=== PATIENT | male | born 1955 | race Caucasian/White ===

== ENCOUNTER 2020-05-25 21:05 | Emergency (ER) | payer MEDICARE, SELFPAY ==
[2020-05-25 21:28] VITALS: BP 159/80; PULSE 68; RESP 18; TEMP 36.7; O2SAT 98; BMI 29.0
[2020-05-25 22:16] VITALS: BP 159/74; PULSE 63; RESP 18; O2SAT 99
--- NOTE | 2020-05-25 22:23 | ECG_ITS ---
Test Reason : HTN Blood Pressure : / mmHG Vent. Rate : 059 BPM Atrial Rate : 059 BPM P-R Int : 178 ms QRS Dur : 154 ms QT Int : 436 ms P-R-T Axes : 047 -07 -03 degrees QTc Int : 431 ms Sinus bradycardia Right bundle branch block Minimal voltage criteria for LVH, may be normal variant Inferior infarct , age undetermined Abnormal ECG No significant changes seen Referred By: Eloisa Muse Electronically Signed By:MIL MCCORMICK MD
--- NOTE | 2020-05-25 22:24 | ED_ITS ---
HPI - General Adult General Chief complaint: General Medical Stated complaint: hi bp Time Seen by Provider: 05/25/20 22:18 Source: patient Mode of arrival: ambulatory Limitations: no limitations History of Present Illness HPI narrative: patient comes to emergency room complaining of high blood pressure. Patient states he takes 20 mg of lisinopril a day, over the last week he has noticed that his blood pressure gets too low 160-170 systolic at night, then during the day is about 140. Prior to arrival, patient took a 2nd tablet of lisinopril. On arrival patient's blood pressure 159/74, now is 140/78, patient states he does not have any headache, no visual changes, no chest pain and shortness of breath. MD complaint: hypertension Related Data Previous Rx's Medication Instructions Recorded lisinopril 40 mg PO DAILY #30 tab 05/25/20 lisinopril 40 mg PO DAILY #30 tab 05/25/20 Allergies Allergy/AdvReac Type Severity Reaction Status Date / Time No Known Allergies Allergy Unverified 04/01/20 16:53 [No Known Allergies*] Review of Systems Review of Systems: Constitutional : No Weight loss, No Fever, No Chills, No Night Sweats, No Fatigue, No Malaise ENT/Mouth : No Hearing loss, No Ear Pain, No Nasal Congestion, No Sinus Pain, No Hoarseness, No sore throat, No Rhinorrhea, No Swallowing Difficulty Eyes: No Eye Pain, No Swelling, No Redness, No Foreign Body, No Discharge, No Vision Changes Cardiovascular : No Chest Pain, No SOB, No Dyspnea on Exertion, No Orthopnea, No Edema, No Palpitations Respiratory : No Cough, No Sputum, No Wheezing, No Smoke Exposure, No Dyspnea Gastrointestinal : No Nausea, No Vomiting, No Diarrhea, No Constipation, No abdominal Pain, No Hematochezia, No Melena Genitourinary : no irregular bleeding, No Dysuria, No Urinary Frequency, No Hematuria, No Urinary Incontinence, No Urgency, No Flank Pain, No Urinary Flow Changes, No Hesitancy Musculoskeletal : No joint pain, No Myalgias, No Joint Swelling Skin : No Skin Lesions, No rash Neuro : No Weakness, No Numbness, No Paresthesias, No Loss of Consciousness, complaining of headache when his blood pressure is high, at this time no headache or dizziness Psych : No Anxiety/Panic, No Depression, No SI/HI/AH/VH, No Social Issues, Heme/Lymph: No Bruising, No Bleeding,No Lymphadenopathy Endocrine : No Polyuria, No Polydipsia, No Temperature Intolerance [facility] Past Medical History Medical History HTN (hypertension) Hypercholesteremia Surgical History (Updated 05/25/20 @ 21:32 by Asia Tatum) History of prostate surgery Social History Social History Advance Directives: No Advance Directives Information Provided: No Physical Exam Vital Signs: Vital Signs: Last Vital Signs Temp 98.0 F 05/25/20 21:28 Pulse 63 05/25/20 22:16 Resp 18 05/25/20 22:16 BP 159/74 H 05/25/20 22:16 Pulse Ox 99 05/25/20 22:16 Body Mass Index 29.0 Appearance: Alert. Oriented X3. No acute distress. Eyes: Pupils equal, round and reactive to light. ENT: Pharynx normal. Neck: Normal inspection. Neck supple. No lymph nodes noted. No crepitus CVS: Normal heart rate and rhythm. Pulses normal. Normal S1 and S2 Respiratory: No respiratory distress. Breath sounds normal. No Wheezing. No rales Abdomen: Soft and nontender. No rigidity. No distention. good BS x4 Skin: Skin warm and dry. Normal skin color. Normal skin turgor. Extremities: No lower extremity edema. No lower extremity edema. No Lacerations. No Rash Neuro: Oriented X 3. No motor deficit. No sensory deficit. Moving all extermities. No slurred speech. Course Course Course Narrative: I discussed with the patient that we will increase his lisinopril dose to 40 mg a day, at this time patient is asymptomatic with a blood pressure of 140/78 Medical Decision Making ECG Data Attestation: I personally reviewed and interpreted this ECG as follows: ( sinus rhythm, heart rate 59, right bundle-branch block, nonspecific T-wave inversions in lead 3, nonspecific T-wave depressions V4 through V6, no new changes since November 2017) Discharge Plan Discharge Clinical Impression: Hypertension Qualifiers: Hypertension type: unspecified Qualified Code(s): I10 - Essential (primary) hypertension Patient Disposition: Home, Self-Care Instructions: Hypertension (ED) Additional Instructions: please follow-up with your primary care physician, please let your PCP know that your dose of lisinopril has been increased to 40 mg. Prescriptions: New lisinopril 40 mg tablet 40 mg PO DAILY Qty: 30 RF: 0 lisinopril 40 mg tablet 40 mg PO DAILY Qty: 30 RF: 0
[2020-05-25 22:49] VITALS: BP 136/76; PULSE 60; RESP 20; O2SAT 98
== END 2020-05-25 23:04 | disposition home or self-care (01) ==
PROVIDERS: Emergency Provider Emergency Medicine
DX: I10 Essential (primary) hypertension (principal); Z79.899 Other long term (current) drug therapy
CPT/HCPCS: 93005; 99283; 99284

== ENCOUNTER 2020-12-11 08:43 | Outpatient (REF) | payer MEDICARE, SELFPAY ==
[2020-12-11 09:59] LABS: Hematocrit 47.3 % (42-52); Hemoglobin 16.1 g/dl (14.0-18.0); Mean Corpuscular Hemoglobin 31.4 pg (27.0-33.0); Mean Corpuscular Volume 92.2 fL (80-98); Mean Platelet Volume 9.2 fL (9.4-12.4); Platelet Count 307 X10*3/uL (160-400); Red Blood Count 5.13 X10*6/uL (4.60-5.80); Red Cell Distribution Width 12.8 % (11.0-16.0); White Blood Count 7.5 X10*3/uL (4.8-10.8)
[2020-12-11 10:36] LABS: Creatinine Urine 84.03 mg/dL; Microalbumin Urine < 5.0 mg/L
[2020-12-11 10:40] LABS: Alanine Aminotransferase 65 U/L (0-40); Albumin Level 4.5 g/dL (3.5-5.0); Alkaline Phosphatase 55 U/L (39-117); Anion Gap 13 (12-20); Aspartate Amino Transferase 61 U/L (5-37); Bilirubin Total 0.9 mg/dL (0.0-1.0); Blood Urea Nitrogen 17 mg/dL (9-16); Calcium 9.5 mg/dL (8.4-10.2); Carbon Dioxide 28 mmol/L (22-29); Chloride 102 mmol/L (96-108); Estimated Glomerular Filt Rate > 60; Glucose Random 90 mg/dL (60-115); Potassium 4.6 mmol/L (3.3-5.1); Sodium 138 mmol/L (135-145); Total Protein 7.6 g/dL (6.5-8.0)
== END 2020-12-11 08:44 | disposition home or self-care (01) ==
LOC: HO.LAB 08:43
PROVIDERS: PCP Family Medicine; Visit Provider Family Medicine
DX: I10 Essential (primary) hypertension (principal)
CPT/HCPCS: 36415; 80053; 82043; 85027

== ENCOUNTER 2023-01-24 12:11 | Outpatient (REF) | payer MEDICARE, SELFPAY ==
--- NOTE | ~2023-01-24 | US_ITS ---
EXAMINATION: US SCROTUM CLINICAL INFORMATION: Right testicular pain. COMPARISON: None available. TECHNIQUE: A sonogram of the scrotum was performed assessing hernandez-scale appearance and color Doppler flow. Spectral Doppler analysis of the arterial and venous flow were performed in the testes bilaterally. FINDINGS: RIGHT: Right testicle measures 4.6 x 2.5 x 3.2 cm, volume 19.3 mL. No focal testicular parenchymal lesions are visualized. Spectral Doppler analysis of the arterial and venous flow is normal in the right testis. Right epididymal head is normal in size. No right varicocele is seen. Trace right hydrocele. Right epididymal Doppler flow is normal. LEFT: Left testicle measures 4.7 x 2.6 x 2.9 cm, volume 18.6 mL. No focal testicular parenchymal lesions are visualized. Spectral Doppler analysis of the arterial and venous flow is normal in the left testis. Left epididymal head is normal in size. No left hydrocele or varicocele is seen. Left epididymal Doppler flow is normal. US/US scrotum IMPRESSION: Trace right hydrocele.
== END 2023-01-24 12:12 | disposition home or self-care (01) ==
LOC: HO.US 12:11
PROVIDERS: PCP Registered Nurse; Visit Provider Registered Nurse
DX: N50.811 Right testicular pain (principal)
CPT/HCPCS: 76870

== ENCOUNTER 2023-04-21 08:31 | Outpatient (REF) | payer MEDICARE, SELFPAY ==
[2023-04-21 09:33] LABS: Cholesterol 146 mg/dL (<200); HDL Cholesterol 33 mg/dL (>40); LDL Cholesterol Calculated 94 mg/dL (<100); Triglycerides 95 mg/dL (<150)
== END 2023-04-21 08:32 | disposition home or self-care (01) ==
LOC: HO.LAB 08:31
PROVIDERS: PCP Registered Nurse; Visit Provider Registered Nurse
DX: E78.2 Mixed hyperlipidemia (principal)
CPT/HCPCS: 36415; 80061

== ENCOUNTER 2023-10-22 12:47 | Outpatient (REF) | payer MEDICARE, SELFPAY ==
[2023-10-22 14:21] LABS: Prostate Specific Antigen 1.63 ng/mL (<0.05-4.0)
== END 2023-10-22 12:48 | disposition home or self-care (01) ==
LOC: HO.LAB 12:47
PROVIDERS: PCP Registered Nurse; Visit Provider Registered Nurse
DX: Z00.00 Encounter for general adult medical examination without abnormal findings (principal); Z12.5 Encounter for screening for malignant neoplasm of prostate
CPT/HCPCS: 36415; 84153

== ENCOUNTER 2024-04-09 09:07 | Outpatient (REF) | payer MEDICARE, SELFPAY ==
[2024-04-09 11:25] LABS: Anion Gap 12 (12-20); Blood Urea Nitrogen 18 mg/dL (9-16); Calcium 10.1 mg/dL (8.4-10.2); Carbon Dioxide 28 mmol/L (22-29); Chloride 103 mmol/L (96-108); Estimated Glomerular Filt Rate 48; Glucose Random 126 mg/dL (60-115); Potassium 3.4 mmol/L (3.3-5.1); Sodium 140 mmol/L (135-145); Uric Acid 9.6 mg/dL (3.4-7.0)
[2024-04-10 16:53] LABS: Lyme Abs Screen <0.90 index
== END 2024-04-09 09:08 | disposition home or self-care (01) ==
LOC: HO.HHCL 09:07
PROVIDERS: Visit Provider Emergency Medicine
DX: M79.672 Pain in left foot (principal)
CPT/HCPCS: 36415; 80048; 84550; 86617; 86618

== ENCOUNTER 2024-05-02 08:41 | Outpatient (REF) | payer MEDICARE, SELFPAY ==
[2024-05-02 12:40] LABS: Anion Gap 11 (12-20); Blood Urea Nitrogen 16 mg/dL (9-16); Carbon Dioxide 30 mmol/L (22-29); Chloride 102 mmol/L (96-108); Estimated Glomerular Filt Rate > 60; Glucose Random 102 mg/dL (60-115); Potassium 4.4 mmol/L (3.3-5.1); Sodium 139 mmol/L (135-145)
== END 2024-05-02 08:42 | disposition home or self-care (01) ==
LOC: HO.HHCL 08:41
PROVIDERS: Referring Provider Family Medicine; Visit Provider Emergency Medicine
DX: R79.89 Other specified abnormal findings of blood chemistry (principal)
CPT/HCPCS: 36415; 80048

== ENCOUNTER 2024-05-05 13:44 | Outpatient (REF) | payer MEDICARE, SELFPAY ==
[2024-05-05 17:04] LABS: Uric Acid 8.7 mg/dL (3.4-7.0)
== END 2024-05-05 13:45 | disposition home or self-care (01) ==
LOC: HO.HHCL 13:44
PROVIDERS: Visit Provider Registered Nurse
DX: M10.9 Gout, unspecified (principal)
CPT/HCPCS: 36415; 84550

== ENCOUNTER 2024-08-22 10:29 | Outpatient (REF) | END 2024-08-22 10:30 | disposition home or self-care (01) | LOC: HO.HHCX 10:29 | DX: M1A.0720 Idiopathic chronic gout, left ankle and foot, without tophus (tophi) (principal) ==

== ENCOUNTER → 2024-08-22 10:32 | Outpatient (BNV) | payer MEDICARE, SELFPAY | PROVIDERS: Visit Provider Radiology Diagnostic Radiology | DX: M79.672 Pain in left foot (principal); M21.42 Flat foot [pes planus] (acquired), left foot; M77.32 Calcaneal spur, left foot | CPT/HCPCS: 73630 ==

== ENCOUNTER 2024-08-25 08:25 | Outpatient (REF) | payer MEDICARE, SELFPAY ==
--- OUTSIDE RECORDS SUMMARY | 2024-08-25 08:42 | XMS_ITS | Encounter Summary ---
Author Organization [employer] Address [address] [place] [address] [address] [place] [address] Care Team Providers Care Real Estate Photographer Name Role Phone Isamar Bonner [facility] Primary Care Provider [phone] Reason for Visit * Reason Onset Date Comments insurance 08/20/2024 Encounter Details Date Type Department Care Team ([facility] st Contact Info) Description 08/20/[address] [facility] MEDICINE [address] [place], [place] [phone] Isamar Bonner [facility] [address] [place] [address] insurance Social History Tobacco Use Types Packs/Day Years Used Date Smoking Tobacco: Never Smokeless Tobacco: Never Alcohol Use Standard Drinks/Week Comments Never 0 (1 standard drink = 0.6 oz pur e alcohol) Depression Answer Date Recorded Patient Health Questionnaire-9 Score 0 05/05/2024 Patient Health Questionnaire-9 Score 0 05/05/2024 Last PHQ-9: Questionnaire Data Not on file 1 Housing Stability Answer Date Recorded What is your housing situation today? I have bobbi theodore 10/12/[address] you li ve. Do you have problems with any of the following? None of the above 10/12/2023 Food Insecurity Answer Date Recorded Within the past 12 months, y ou worried that your food would run out before you got money to buy more: Never True 10/12/2023 Within the past 12 months,th e food you bought just didn't last and you didn't have enough money to get more: Never True Transportation Answer Date Recorded In the past 12 months, has l ack of transportation kept you from medical appts, meetings, work or from getting things needed for daily living? No 10/12/2023 Utilities Answer Date Recorded In the past 12 months, has t he electric, gas, oil or water company threatened to shut off services in your home? No 10/12/2023 Depression Answer Date Recorded Patient Health Questionnaire-2 Score 0 05/05/2024 Sex and Gender Information Value Date Recorded Sex Assigned at Male 05/15/2022 10:15 AM EDT Legal Sex Male 10:15 AM EDT Gender Identity Male 05/15/2022 10:15 AM EDT Sexual Orientation Straight 05/15/2022 10 :15 AM EDT documented as of this encounter Miscellaneous Notes * Telephone Encounter - Virikaren Steel - 08/20/2024 2:59 PM EST Called pt to ask what insurance they have because the one on his chart was coming back inactive pt said he has [facility] pt gave me the member ID , the insurance is active but the only problem I told him is the pcp assigned to the insurance is from somewhere else he has to call the insurance and let themknow his pcp is Filer from [facility]. Pt said no problem he will call. documented in this encounter Plan of Treatment Upcoming Encounters Date Type Department Care Team (Late st Contact Info) Description 09/03/2024 11:00 AM EST Clinical Support [facility] MEDICINE [address] [place] [address] documented as of this encounter Visit Diagnoses Not on filedocumented in this encounter Additional Health Concerns Assessment Noted Time PHQ-9 Depression Total Score: 0 05/05/20 24 1:02 PM EDT documented as of this encounter Care Teams Real Estate Photographer Relationship Specialty Start Date End Date Isamar Bonner FNP [address] [place] [address] PCP - General Family Medicine 03/13/22 documented as of this encounter
--- OUTSIDE RECORDS SUMMARY | 2024-08-25 08:42 | XMS_ITS | Encounter Summary ---
Author Organization [employer] Address [address] [place] [address] [address], [place] [address] Care Team Providers Care Metal Weather Stripper Name Role Phone Isamar Bonner [facility] Primary Care Provider [phone] Reason for Visit * Reason Comments Hypertension Encounter Details Date Type Department Care Team ([facility] Contact Info) Description 08/22/2024 9:15 AM EST Office Visit [facility] MEDICINE [address] [place], [place] [phone] [facility] [address] [place] [address] Primary hypertension (Primary Dx); 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; Dietary counseling; Exercise counseling; Class 1 obesity due to excess calories with serious comorbidity and body mass index (BMI) of 31.0 to 31.9 in adult Social History Tobacco Use Types Packs/Day Years Used Date Smoking Tobacco: Never Smokeless Tobacco: Never Alcohol Use Standard Drinks/Week Comments Never 0 (1 standard drink = 0.6 oz pur e alcohol) Depression Answer Date Recorded Patient Health Questionnaire-9 Score 0 08/22/2024 Patient Health Questionnaire-9 Score 0 08/22/2024 Last PHQ-9: Questionnaire Data Not on file 0 08/22/2024 Housing Stability Answer Date Recorded What is [...] Date Recorded Patient Health Questionnaire-2 Score 0 08/22/2024 Internet Access Answer Date Recorded Internet Access Q1 Yes 08/22/2024 Internet Access Q2 Not on file 08/22/2024 Sex and Gender Information Value Date Recorded Sex Assigned at Male 05/15/2022 10:15 AM EDT Legal Sex Male 10:15 AM EDT Gender Identity Male 05/15/2022 10:15 AM EDT Sexual Orientation Straight 05/15/2022 10 :15 AM EDT documented as of this encounter Last Filed Vital Signs Vital Sign Reading Time Taken Comments Blood Pressure 120/70 08/22/2024 9:52 AM EST Pulse 81 08/22/2024 9:12 AM EST Temperature 36.4 ??C (97.5 ??F) 08/22/2024 9:12 AM ES T Respiratory Rate 20 08/22/2024 9:12 AM EST Oxygen Saturation 98% 08/22/2024 9:12 AM EST Inhaled Oxygen Concentration - - Weight 89.5 kg (197 lb 6.4 oz) 08/22/2024 9:12 A M EST Height 167.6 cm (5' 6 ) 08/22/2024 9:12 AM EST Body Mass Index 31.86 08/22/2024 9:12 AM EST documented in this encounter Patient Instructions * Patient Instructions* АЛЕКСАНДР Dye - 08/22/2024 9:15 AM EST - Complete blood work - Complete xray - STOP hydrochlorothiazide - INCREASE olmesartan to 40mg daily - RN BP check in 2 weeks - Will receive phone call to discuss gout treatment after blood work documented in this encounter Progress Notes * [facility] Er, CRA OFFICER - 08/22/2024 9:15 AM EST SUBJECTIVE: Derik Smith is a 69 y.o. year old male with HTN, HLD, BPH and gout who presents for chronic disease management. Denies recent illness, injury, or hospitalization. Acute Concerns: Gout-had second flare end of May in [place]. Tx'd effectively with colchicine. MCP joint left foot first digit Interim Updates: HTN-readings well controlled at home Social History Social History Narrative SOCIAL HX Current living environment: Lives alone Children: 3 adult boys, 8 grandkids Tobacco Use: None Alcohol Use: None Marijuana Use: None Other drug use: None [employer] Sexually Active: No Partners are: AFAB Patient Active Problem List Diagnosis BPH without urinary obstruction Hypertension Hyperlipidemia Health care maintenance High potassium Acute drug-induced gout of left foot No past surgical history on file. No family history on file. Review of Systems Constitutional: Negative for activity change, diaphoresis, fatigue, fever and unexpected weight change. Eyes: Negative for visual disturbance. Respiratory: Negative for apnea, cough, chest tightness and shortness of breath. Cardiovascular: Negative for chest pain, palpitations and leg swelling. Gastrointestinal: Negative for abdominal pain and nausea. Neurological: Negative for dizziness, syncope, light-headedness and headaches. OBJECTIVE: Vitals: 08/22/24 0912 08/22/24 0952 BP: (!) 142/78 120/70 BP Location: Left arm Patient Position: Sitting BP Cuff Size: Large adult Pulse: 81 Resp: 20 Temp: 97.5 ??F (36.4 ??C) TempSrc: Temporal SpO2: 98% Weight: 197 lb 6.4 oz (89.5 kg) Height: 5' 6 (1.676 m) Physical Exam Constitutional: Appearance: Normal appearance. HENT: Head: Normocephalic. Right Ear: External ear normal. Left Ear: External ear normal. Nose: Nose normal. Eyes: Conjunctiva/sclera: Conjunctivae normal. Cardiovascular: Rate and Rhythm: Normal rate and regular rhythm. Heart sounds: Normal heart sounds. Pulmonary: Effort: Pulmonary effort is normal. Breath sounds: Normal breath sounds. Musculoskeletal: Right lower leg: No edema. Left lower leg: No edema. Skin: General: Skin is warm and dry. Capillary Refill: Capillary refill takes less than 2 seconds. Neurological: General: No focal deficit present. Mental Status: He is alert and oriented to person, place, and time. Psychiatric: Mood and Affect: Mood normal. Behavior: Behavior normal. ASSESSMENT/PLAN 1. Primary hypertension (Primary) -Blood pressure currently well-controlled with hydrochlorothiazide 25 mg and olmesartan 20 however due to multiple gout flares will stop HCTZ and increase olmesartan -Update routine blood work -RN blood pressure check in 2 weeks - Reviewed ED precautions to include chest pain, shortness of breath, severe headache, sudden vision changes or BP >=180/>=120 mmHg. Contact HC if three or more BP readings >140/90. - olmesartan (BENIcar) 40 MG tablet; Take 1 tablet (40 mg) by mouth Once per day. Dispense: 30 tablet; Refill: 11 - Basic Metabolic Panel; Future - Lipid Panel, Standard; Future - Basic Metabolic Panel - Lipid Panel, Standard 2. 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 Plan to recheck levels and initiate treatment pending results -Will obtain x-ray to check for evidence of tophi -Lifestyle recommendations advised including weight loss, balanced diet avoiding alcohol and high sugar beverages. Limiting high purine foods (handout provided) - XR Foot 3+ Views Left; Future - XR Foot 3+ Views Left - Uric acid; Future - Uric acid 3. Dietary counseling 4. Exercise counseling 5. Class 1 obesity due to excess calories with serious comorbidity and body mass index (BMI) of 31.0 to 31.9 in adult - Encouraged regular aerobic exercise within initial goal of 30 minute walk 3x/week - Encouraged balanced diet with a variety of fruits, vegetables, and lean meats. Follow Up: 6 months, routine Current Outpatient Medications on File Prior to Visit Medication Sig Dispense Refill acetaminophen (Tylenol 8 Hour) 650 MG ER tablet Take 2 tablets (1,300 mg) by mouth every 8 (eight) hours. 30 tablet 0 aspirin 81 MG EC tablet Take 1 tablet by mouth in the morning. Fluocinolone Acetonide Scalp ([place]-Smoothe/FS Scalp) 0.01 % oil Massage into damp scalp daily. Cover hair and leave on for at least 4 hours 118 mL 0 hydroCHLOROthiazide (HYDRODiuril) 25 MG tablet TAKE 1 TABLET BY MOUTH IN THE MORNING 90 tablet 1 mineral oil-hydrophilic petrolatum (Aquaphor) ointment Apply topically if needed for dry skin. 396 g 1 olmesartan (BENIcar) 20 MG tablet TAKE 1 TABLET BY MOUTH IN THE MORNING 90 tablet 1 simvastatin (Zocor) 40 MG tablet TAKE 1 TABLET BY MOUTH AT BEDTIME 90 tablet 0 triamcinolone (Kenalog) 0.1 % ointment Apply topically 2 times daily. For 2 weeks 15 g 0 No current facility-administered medications on file prior to visit. 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 Expected: 08/22/2024 (Approximate), Expires: 08/22/2025 Lipid Panel, Standard Lab Routine Primary hypertension Expected: 08/22/2024 (Approximate), Expires: 08/22/2025 documented as of this encounter Procedures Procedure Name Priority Date/Time Associated Diagnosis Comments XR FOOT 3+ VIEWS LEFT Routine 08/22/2024 10:32 AM EST 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 ?[address] ?[place] [address] ?XRay Report ? Signed ? Patient: Luis Yoandy,Derik ?MR ?? #: [id number] ? : 1955 ?Acct:[id number] ? Age/Sex: 69 / M ?ADM Date: 08/22/24 ? Loc: HO.HHCX ? Attending Dr: Isamar FOUNTAIN ? Ordering Physician: Isamar Bonner ?? Date of Service: 08/22/24 ?? Procedure(s): XR foot LT min 3V ?? Accession Number(s): [id number] ? cc: Isamar Bonner CRA OFFICER ? EXAMINATION: ?? XR FOOT, LEFT ? CLINICAL INFORMATION: ?? PAIN ? COMPARISON: ?? None available. ? TECHNIQUE: ?? AP, lateral, and oblique views of the left foot. ? FINDINGS: ?? Soft tissue swelling overlying the first MTP joint. No calcified ?? tophus. Joint itself appears normal without definite periarticular ?? erosions or productive changes. ?? Otherwise, no fracture, dislocation, or suspicious bone lesion. Joint ?? spaces are preserved. ?? Minimal flattening of the normal plantar arch. ?? Moderate size dorsal and small plantar calcaneal spurs. ?? Mild enthesopathy base of fifth metatarsal. ?? Midfoot and hindfoot otherwise image normally. ? No additional soft tissue abnormality aside from diffuse vascular ?? calcification. ? XR/XR foot LT min 3V ?? IMPRESSION: ?? 1. Soft tissue swelling abutting the first MTP joint, without ?? calcification, or joint erosions evident. ?? 2. Mild pes planus. ?? 3. Diffuse soft tissue vascular calcification. ?? 4. Plantar and dorsal calcaneal spurs. ? Electronically signed by: ??Nicanor Orellana MD ??08/22/2024 11:00 AM EST RP ? Dictated By: ?Nicanor Orellana MD ? Signed By: ?<Electronically signed by Nicanor Orellana MD in OV> ?08/22/24 1100 ? DD/ 1032 ? TD/TT: 08/22/24 1041 ? Healthcare Facility Administrator: ? Procedure Note Madisyn, Image - 08/22/2024 [facility] [address] [place] [address] XRay Report Signed Patient: Derik Matthews #: [id number] : 3Acct:[id number] Age/Sex: 69 / MADM Date: 08/22/24 [facility] Dr: Isamar Ha CRA OFFICER Ordering Physician: Isamar Bonner Date of Service: 08/22/24 Procedure(s): XR foot LT min 3V Accession Number(s): [id number] [facility] EX[facility]: XR FOOT, LEFT CLINICAL INFORMATION: PAIN COMPARISON: None available. TECHNIQUE: AP, lateral, and oblique views of the left foot. FINDINGS: Soft tissue swelling overlying the first MTP joint. No calcified tophus. Joint itself appears normal without definite periarticular erosions or productive changes. Otherwise, no fracture, dislocation, or suspicious bone lesion. Joint spaces are preserved. Minimal flattening of the normal plantar arch. Moderate size dorsal and small plantar calcaneal spurs. Mild enthesopathy base of fifth metatarsal. Midfoot and hindfoot otherwise image normally. No additional soft tissue abnormality aside from diffuse vascular calcification. XR/XR foot LT min 3V IMPRESSION: 1. Soft tissue swelling abutting the first MTP joint, without calcification, or joint erosions evident. 2. Mild pes planus. 3. Diffuse soft tissue vascular calcification. 4. Plantar and dorsal calcaneal spurs. 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
--- OUTSIDE RECORDS SUMMARY | 2024-08-25 08:42 | XMS_ITS | Clinical Summary ---
Author Organization [employer] Address [address] [place] [address] [address] [place] [address] Care Team Providers Care Sugar Coating Hand Name Role Phone Isamar Bonner LAY UPS ASSEMBLER Primary Care Provider [phone] Allergies No known active allergies Medications aspirin 81 MG EC tablet Take 1 tablet by mouth in the morning. 05/19/20 20 Active Fluocinolone Acetonide Scalp (Vaughn-Smoothe/F S Scalp) 0.01 % oilIndications:E czema of both external ears Massage into damp scalp daily. Cover hair and leave on for at least 4 hours 118 mL 10/22/19 24 Active mineral oil-hydrophilic petrolatum (Aquaphor) ointmentIndicati ons:Eczema of both external ears Apply topically if needed for dry skin. 396 g 1 10/22/19 24 025 Active acetaminophen (Tylenol 8 Hour) 650 MG ER tablet Take 2 tablets (1,300 mg) by mouth every 8 (eight) hours. 30 tablet 04/09/20 24 Active hydroCHLOROthiaz david (HYDRODiuril) 25 MG tabletIndication s:Primary hypertension TAKE 1 TABLET BY MOUTH IN THE MORNING 90 tablet 1 04/15/20 24 Active triamcinolone (Kenalog) 0.1 % ointmentIndicati ons:Rash Apply topically 2 times daily. For 2 weeks 15 g 05/05/20 24 Active simvastatin (Zocor) 40 MG tablet TAKE 1 TABLET BY MOUTH AT BEDTIME 90 tablet 05/28/20 24 Active olmesartan (BENIcar) 40 MG tabletIndication s:Primary hypertension Take 1 tablet (40 mg) by mouth Once per day. 30 tablet 11 08/22/19 25 026 Active olmesartan (BENIcar) 20 MG tabletIndication s:Primary hypertension TAKE 1 TABLET BY MOUTH IN THE MORNING 90 tablet 1 03/10/20 24 025 Discontinued Active Problems Problem Noted Date Diagnosed Date Acute drug-induced gout of left foot 04/09/2024 High potassium 10/15/2022 Overview (10/15/2022): ?? Mild potassium elevation 06/2022 5.4 Assessment & Plan (10/15/2022 11:50 AM EDT): ?? Will repeat today ?? Low potassium diet encouraged Health care maintenance 06/17/2022 Overview (10/15/2022): C-Scope: 09/2016 repeat 09/2026 PSA: 06/2022 1.08 HCV Screen: 02/2020, neg HIV Screen: 11/2021, neg STI Screening: Declines Vision Exam: [facility]: Discuss at f/u Screening Labs: A1c-5.6, 11/2021 Assessment & Plan (10/15/2022 11:48 AM EDT): Accepts covid booster today Assessment & Plan (06/17/2022 9:14 PM EST): C-Scope: 09/2016 repeat 09/2026 PSA: Ordered today HCV Screen: 02/2020, neg HIV Screen: 11/2021, neg STI Screening: Declines Vision Exam: [facility]: Discuss at f/u Immunizations: Accepts flu, declines Shingles #2 or COVID booster today Screening Labs: A1c-5.6, 11/2021 Hyperlipidemia 06/15/2022 Overview (10/15/2022): ?? Simvastatin 40mg daily Assessment & Plan (04/29/2023 11:10 PM EDT): ?? Continue current regimen ?? Repeat lipid panel today Assessment & Plan (06/17/2022 9:06 PM EST): Continue simvastatin 40mg daily Lipid panel ordered today - Encouraged weight loss and dietary modifications to reduce cholesterol and prevent atherosclerotic events - Avoid foods high in saturated fat and increase foods high in fiber. Further resources available at https://www.heart.org/en/health-topics/cholesterol/choles - Continue yearly cholesterol monitoring BPH without urinary obstruction 04/23/2015 Overview (10/15/2022): - S/P TURP with sx improvement - No longer followed by urology Hypertension 04/23/2015 Overview (04/29/2023): ?? Olmesartan 20mg daily ?? hydrochlorothiazide 25mg daily ?? ASA 81mg daily for primary prevention ?? Documented RBBB ?? Followed yearly by cardiology at [facility] Maintenance: BMP: 07/2022 Lipid Panel: 07/2022 ASCVD Risk: Calculate pending updated labs EKG: Obtain baseline at f/u - Aerobic exercise to reduce BP. Initial goal of 30 min walk 3-5x/week. Increase as tolerated. - low-sodium diet (goal: <2g/day) and heart healthy diet such as DASH to reduce BP and prevent ASCVD. - Home BP monitoring 1-2 x day with goal of <140/90. - Seek immediate medical attention for chest pain, palpitations, SOB, syncope, or sudden changes in mental status. - Do not change or discontinue current prescriptions without first consulting health care provider Assessment & Plan (04/29/2023 11:09 PM EDT): Well controlled Continue current regimen Assessment & Plan (01/26/2023 12:52 PM EDT): ?? INCREASE hydrochlorothiazide to 25mg daily ?? Continue olmesartan ?? Repeat labs Assessment & Plan (10/15/2022 11:41 AM EDT): ?? STOP lisinopril hydrochlorothiazide combination ?? START olmesartan 20mg daily ?? Continue hydrochlorothiazide 12.5mg ?? RN BP check 2 weeks with repeat BMP Assessment & Plan (06/17/2022 8:59 PM EST): Well controlled Continue lisinopril 20mg/HCTZ 12.5mg daily Maintenance: BMP: Ordered today Lipid Panel: Ordered today ASCVD Risk: Calculate pending updated labs EKG: Obtain baseline at f/u - Aerobic exercise to reduce BP. Initial goal of 30 min walk 3-5x/week. Increase as tolerated. - low-sodium diet (goal: <2g/day) and heart healthy diet such as DASH to reduce BP and prevent ASCVD. - Home BP monitoring 1-2 x day with goal of <140/90. - Seek immediate medical attention for chest pain, palpitations, SOB, syncope, or sudden changes in mental status. 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; Dietary counseling; Exercise counseling; Class 1 obesity due to excess calories with serious comorbidity and body mass index (BMI) of 31.0 to 31.9 in adult 08/22/2024 Travel 08/20/2024 Telephone [facility] [address] [place] [address] AthensIsamar [facility] insurance 06/11/2024 Telephone [facility] [address] [place] [address] [facility] Isamar [facility] No Show 06/11/2024 Travel 05/26/2024 Refill [facility] [address] [place] [address] Chitra Haji FNP from Last 3 Months Immunizations Name Administration Dates Next Due Influenza High-dose Quadriva lent Preservative Free 04/18/2023,05/20/2020 Influenza injectable quadriv alent IIV4 with preservative 08/08/2017 Influenza injectable quadriv alent preservative free 06/03/2021,04/15/2016 Influenza, High Dose Seasona l, Preservative Free 05/05/2024,05/15/2019 Influenza, seasonal, injecta ble, preservative free 06/15/2022 Moderna Covid-19 Vaccine 12+ 08/17/2021,12/07/19 21,09/09/2020 Moderna Covid-19 Vaccine 6+ Bivalent 10/13/2022 Pneumococcal Conjugate PCV 13 12/02/2018 Pneumococcal Polysaccharide PPSV23 07/12/2021 TD (adult), 2 Lf tetanus tox oid, preservative free, adsorbed 07/12/2021 Tdap 06/27/2011 Zoster, live 03/28/2016 Social History Tobacco Use Types Packs/Day Years Used Date Smoking Tobacco: Never Smokeless Tobacco: Never Tobacco Cessation:Counseling Given: Not Answered Alcohol Use Standard Drinks/Week Comments Never 0 [...] Orientation Straight 05/15/2022 10 :15 AM EDT Last Filed Vital Signs Vital Sign Reading [...] Mass Index 31.86 08/22/2024 9:12 AM EST Plan of Treatment Upcoming Encounters Date Type Department Care Team (Late st Contact Info) Description 09/03/2024 11:00 AM EST Clinical Support [facility] [address] [place] [address] Health Maintenance Due Date Last Done Comments CT Colonography 1955 FIT DNA/Cologuard 1955 FIT 1955 FOBT 1955 Sigmoidoscopy 1955 Alcohol/Substance Use Screening 1965 Zoster Vaccines (2 of 3) 05/23/2016 03/28/2016 COVID-19 Vaccine ( season) 2024 10/13/2022, 08/17/2021, 12/06/2020, Additional history exists Depression Screening 08/22/2025 08/22/2024, 08/22/19 Tobacco Screening 08/23/2025 08/23/2024 Colonoscopy 09/13/2026 Colorectal Cancer Screening 09/13/2026 RSV Patients and Patients Aged 60 years or older (1 - 1-dose 75+ series) 01/29/2028 Lipid Panel 04/21/2028 04/21/2023, 1209/2021, 12/07/2021, Additional history exists DTaP/Tdap/Td Vaccines (3 - Td or Tdap) 07/12/2031 07/12/2021, 06/27/2011 Hepatitis C Screening Discontinued 03/15/2020 Pneumococcal Vaccine: 50+ Years Completed 07/12/2021, 12/02/2018 Influenza Vaccine Completed 05/05/2024, , 06/15/2022, Additional history exists SDOH Screening Discontinued 08/22/2024 HIB Vaccines Aged Out No longer eligi ble based on patient's age to complete this topic HPV Vaccines Aged Out No longer eligi ble based on patient's age to complete this topic Hepatitis A Vaccines Aged Out No long er eligible based on patient's age to complete this topic Hepatitis B Vaccines Aged Out No long er eligible based on patient's age to complete this topic IPV Vaccines Aged Out No longer eligi ble based on patient's age to complete this topic Meningococcal Vaccine Aged Out No evaristo pipe eligible based on patient's age to complete this topic RSV under 20 months Aged Out No longe r eligible based on patient's age to complete this topic Rotavirus Vaccines Aged Out No longer eligible based on patient's age to complete this topic Procedures Procedure Name Priority Date/Time Associated Diagnosis Comments XR FOOT 3+ VIEWS LEFT Routine 08/22/2024 10:32 AM EST 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 ?[place] [address] ?XRay Report ? Signed ? Patient: Luis Yoandy,Derik ?MR ?? #: [id number] ? : 1955 ?Acct:[id number] ? Age/Sex: 69 / M ?ADM Date: 08/22/24 ? Loc: HO.HHCX ? Attending Dr: Isamar Bonner LAY UPS ASSEMBLER ? Ordering Physician: Isamar Bonner LAY UPS ASSEMBLER ?? Date of Service: 08/22/24 ?? Procedure(s): XR foot LT min 3V ?? Accession Number(s): [id number] ? cc: Isamar Bonner LAY UPS ASSEMBLER ? EXAMINATION: ?? XR FOOT, LEFT ? [...] Orellana MD ??08/22/2024 11:00 AM EST RP ?? Workstation: [id number] ? Dictated By: ?Nicanor Orellana MD ? Signed By: ?<Electronically signed by Nicanor Orellana MD in OV> ?08/22/24 1100 ? DD/ 1032 ? TD/TT: 08/22/24 1041 ? Tooling Engineer: ? Procedure Note Jovita Mars - 08/22/2024 [facility] [address] [facility] [place] [address] XRay Report Signed Patient: Edd Matthews #: [id number] : 3Acct:[id number] Age/Sex: 69 / MADM Date: 08/22/24 Loc: HO.HHCX Attending Dr: Isamar FOUNTAIN Ordering Physician: Isamar Bonner Date of Service: 08/22/24 Procedure(s): XR foot LT min 3V Accession Number(s): [id number] cc: Ha,[facility] EXAMINATION: XR FOOT, LEFT CLINICAL INFORMATION: [...] by: Nicanor Orellana MD 08/22/2024 11:00 AM [facility] Dictated By: Nicanor Orellana MD Signed By: <Electronically signed by Nicanor Orellana MD in OV> 08/22/24 1100 DD/ 1032 TD/TT: 08/22/24 1041 Tooling Engineer: [facility] IMG XR PROCEDURES Final Resul t * (ABNORMAL) Lipid Panel, Standard (04/21/2023 8:40 AM EDT) Triglycerides 95 <150 mg/dL [facility] Comment:Desirable Triglyceri de: less than 150 mg/dLBorderline High Triglyceride 150-199 mg/dLHigh Triglyceride: 200-499 mg/dLVery High Triglyceride: greater than or equal to 5OO mg/dL Cholesterol 146 <200 mg/dL [facility] Comment:Desirable Cholestero l: less than 200 mg/dLBorderline High Cholesterol: 200-239 mg/dLHigh Cholesterol: greater than 239 mg/dL LDL Cholesterol Calculated 94 <100 mg/dL [facility] Comment:Desirable LDL: less than 100 mg/dLNear Optimal/Above Optimal LDL: 110- 129 mg/dLBorderline High LDL: 130-159 mg/dLHigh LDL: 160-189 mg/dLVery High LDL: greater than or equal to 190 mg/dL HDL Cholesterol 33(L) >40 mg/dL [facility] Comment:Desirable HDL: great er than 40 mg/dL Note: This HDL assay may give artificially low results in patients with liver disease. Blood Venous blood specimen / Unknown 04/21/2023 8:40 AM EDT 04/21/2023 8:41 AM EDT [facility] LAY UPS ASSEMBLER LAB BLOOD ORDERABLES Final Re sult Performing Organization Address City/State/[facility] Co de Phone Number [facility] [address] [place] [phone] * HEPATITIS C AB W/REFL TO HCV RNA, QN, PCR (03/15/2020 9:50 AM EDT) HEPATITIS C ANTIBODY NON-REACT JENNIFER NON-REACT JENNIFER [facility] INDEX 0.08 <1.00 [facility] Comment: ?? HCV antibody was non-reactive. There is no laboratory ?? evidence of HCV infection. ?? In most cases, no further action is required. However, if recent HCV exposure is suspected, a test for HCV RNA (test code 75605) is suggested. ?? For additional information please refer to http://education.[employer]/faq/YTP91z1 (This link is being provided for informational/ educational purposes only.) ?? 03/15/2020 9:50 AM EDT Mary Scanlon MD HISTORICAL/NON ORDERABLE LABS Final Result [facility] [address] from Last 3 Months or Most Recently Relevant to Health Maintenance Insurance [facility] Care Teams Sugar Coating Hand Relationship Specialty Start Date End Date Isamar Bonner FNP [address] [place] [phone] PCP - General Family Medicine 03/13/22
--- OUTSIDE RECORDS SUMMARY | 2024-08-25 08:42 | XMS_ITS | Encounter Summary ---
Author Organization [facility] Address [address] [place] [address] [address] [address] Care Team Providers Care Base Manager Name Role Phone Isamar Bonner Primary Care Provider Encounter Details Date Type Department Care Team (Latest Contact Info) Description 05/03/2022 Abstract [facility] CONVERSIONS Dental, Provider, DDS Social History Tobacco Use Types Packs/Day Years Used Date Smoking Tobacco: Never Assessed Sex and Gender Information Value Date Recorded Sex Assigned at Male 05/15/2022 10:15 AM EDT Legal Sex Male 10:15 AM EDT Gender Identity Male 05/15/2022 10:15 AM EDT Sexual Orientation Straight 05/15/2022 10 :15 AM EDT documented as of this encounter Plan of Treatment Upcoming Encounters Date Type Department Care Team (Late st Contact Info) Description 09/03/2024 11:00 AM EST Clinical Support [facility] [address] [place] [address] documented as of this encounter Visit Diagnoses Not on filedocumented in this encounter Care Teams Base Manager Relationship Specialty Start Date End Date Isamar Bonner FNP [address] [place] [address] PCP - General Family Medicine 03/13/22 documented as of this encounter
--- OUTSIDE RECORDS SUMMARY | 2024-08-25 08:42 | XMS_ITS | Encounter Summary ---
Author Organization [employer] Address [address] [facility] [address] [place] [address] Care Team Providers Care Tool Grinder Operator External Name Role Phone Isamar Bonner GASKET MAKER Primary Care Provider [phone] Encounter Details Date Type Department Care Team (Latest Contact Info) Description 08/22/2024 Travel Social History Tobacco Use Types Packs/Day Years [...] Description 09/03/2024 11:00 AM EST Clinical Support [facility] [address] [place] [address] documented as of this encounter Visit Diagnoses Not on filedocumented in this encounter Additional Health Concerns Assessment Noted Time PHQ-9 Depression Total Score: 0 08/22/19 25 9:18 AM EST documented as of this encounter Care Teams Tool Grinder Operator External Relationship Specialty Start Date End Date Isamar Bonner FNP [address] [place] [address] PCP - General Family Medicine 03/13/22 documented as of this encounter
--- OUTSIDE RECORDS SUMMARY | 2024-08-25 08:42 | XMS_ITS | Encounter Summary ---
Author Organization [employer] Address [address] [place] [address] [address] [address] Care Team Providers Care Web Development Consultant Name Role Phone Ha [facility] Primary Care Provider [phone] Reason for Visit * Reason Onset Date Comments Med Refill 12/13/2022 Encounter Details Date Type Department Care Team ([facility] st Contact Info) Description 12/13/2022 Telephone [facility] [address] [place], [place] [phone] [facility] [address] [place] [address] Med Refill Social History Tobacco Use Types Packs/Day Years [...] Orientation Straight 05/15/2022 10 :15 AM EDT COVID-19 Exposure Response Date Recorded In the last 10 days, have yo u been in contact with someone who was confirmed or suspected to have Coronavirus/COVID-19? No / Unsure 01/15/2023 12:24 PM EDT documented as of this encounter Miscellaneous Notes * Telephone Encounter - Xochitl Krueger LPN - 12/13/2022 3:44 PM EDT Medication pended to PCP awaiting approval. * Telephone Encounter - Katya Delong - 12/13/2022 3:38 PM EDT Tc from pt requesting a refill for olmesartan 20 mg documented in this encounter Plan of Treatment Upcoming Encounters Date Type Department Care Team (Late st Contact Info) Description 09/03/2024 11:00 AM EST Clinical Support [facility] [address] [place], [place] [phone] documented as of this encounter Visit Diagnoses Not on filedocumented in this encounter Care Teams Web Development Consultant Relationship Specialty Start Date End Date Isamar Bonner FNP [address] [place] [address] PCP - General Family Medicine 03/13/22 documented as of this encounter
--- OUTSIDE RECORDS SUMMARY | 2024-08-25 08:42 | XMS_ITS | Encounter Summary ---
Author Organization [employer] [facility] Address [address] [place] [address] [place] [address] Care Team Providers Care Automotive Engineering Teacher Name Role Phone Isamar Bonner Primary Care Provider [phone] Encounter Details Date Type Department Care Team (Late st Contact Info) Description 06/01/2023 Abstract [facility] [address] [place] [address] Melissa Pineda Social History Tobacco Use Types Packs/Day Years Used Date Smoking Tobacco: Never Smokeless Tobacco: Never Alcohol Use Standard Drinks/Week Comments Never 0 (1 standard drink = 0.6 oz pur e alcohol) Depression Answer Date Recorded Patient Health Questionnaire-9 Score 0 01/15/2023 Depression Answer Date Recorded Patient Health Questionnaire-2 Score 0 01/15/2023 Sex and Gender Information Value Date Recorded Sex Assigned at Male 05/15/2022 10:15 AM EDT Legal Sex Male 10:15 AM EDT Gender Identity Male 05/15/2022 10:15 AM EDT Sexual Orientation Straight 05/15/2022 10 :15 AM EDT documented as of this encounter Plan of Treatment Upcoming Encounters Date Type Department Care Team (Late st Contact Info) Description 09/03/2024 11:00 AM EST Clinical Support [facility] [address] [place], [place] [phone] documented as of this encounter Visit Diagnoses Not on filedocumented in this encounter Additional Health Concerns Assessment Noted Time PHQ-9 Depression Total Score: 0 01/16/20 23 1:07 PM EDT documented as of this encounter Care Teams Automotive Engineering Teacher Relationship Specialty Start Date End Date Isamar Bonner FNP [address] [place] [address] PCP - General Family Medicine 03/13/22 documented as of this encounter
[2024-08-25 11:33] LABS: Anion Gap 11 (12-20); Blood Urea Nitrogen 20 mg/dL (9-16); Calcium 9.3 mg/dL (8.4-10.2); Carbon Dioxide 27 mmol/L (22-29); Chloride 107 mmol/L (96-108); Cholesterol 154 mg/dL (<200); Estimated Glomerular Filt Rate 59; Glucose Random 97 mg/dL (60-115); HDL Cholesterol 35 mg/dL (>40); LDL Cholesterol Calculated 93 mg/dL (<100); Potassium 4.2 mmol/L (3.3-5.1); Sodium 141 mmol/L (135-145); Triglycerides 130 mg/dL (<150); Uric Acid 8.9 mg/dL (3.4-7.0)
== END 2024-08-25 08:26 | disposition home or self-care (01) ==
LOC: HO.HHCL 08:25
PROVIDERS: Visit Provider Registered Nurse
DX: I10 Essential (primary) hypertension (principal); M1A.0720 Idiopathic chronic gout, left ankle and foot, without tophus (tophi)
CPT/HCPCS: 36415; 80048; 80061; 84550

== ENCOUNTER 2024-11-24 10:01 | Outpatient (REF) | payer MEDICARE, SELFPAY ==
--- OUTSIDE RECORDS SUMMARY | 2024-11-24 10:27 | XMS_ITS | Clinical Summary ---
Author Organization [employer] Address [address] [place] [address] 7[address] [place] [address] Care Team Providers Care Earth Moving Machine Operator Name Role Phone Isamar Bonner SALES ENABLEMENT CONSULTANT Primary Care Provider Allergies No known active allergies Medications aspirin 81 MG EC tablet Take 1 tablet by mouth in the morning. 05/19/20 20 Active Fluocinolone Acetonide Scalp ([place]-Smoothe/F S Scalp) 0.01 % oilIndications:E czema of both external ears Massage into damp scalp daily. Cover hair and leave on for at least 4 hours 118 mL 10/22/19 24 Active acetaminophen (Tylenol 8 Hour) 650 MG ER tablet Take 2 tablets (1,300 mg) by mouth every 8 (eight) hours. 30 tablet 04/09/20 24 Active triamcinolone (Kenalog) 0.1 % ointmentIndicati ons:Rash Apply topically 2 times daily. For 2 weeks 15 g 05/05/20 24 Active olmesartan (BENIcar) 40 MG tabletIndication s:Primary hypertension Take 1 tablet (40 mg) by mouth Once per day. 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 45 tablet 3 09/02/19 25 026 Active simvastatin (Zocor) 40 MG tablet Take 1 tablet (40 mg) by mouth at bedtime. 90 tablet 10/02/19 25 Active NIFEdipine XL (Procardia XL) 30 MG 24 hr tablet Take 1 tablet (30 mg) by mouth Once per day. Do not crush, chew, or split. 30 tablet 11 09/20/19 25 025 Discontinued Active Problems Problem Noted Date [...] 11/2021, neg STI Screening: Declines Vision Exam: [facility]: Discuss at f/u Screening Labs: A1c-5.6, 11/2021 Assessment & Plan (10/15/2022 11:48 AM EDT): Accepts covid booster today Assessment & Plan (06/17/2022 9:14 PM EST): C-Scope: 09/2016 repeat 09/2026 PSA: Ordered today HCV Screen: 02/2020, neg HIV Screen: 11/2021, neg STI Screening: Declines Vision Exam: [facility]: Discuss at f/u Immunizations: Accepts [...] RBBB ?? Followed yearly by cardiology at [facility] Maintenance: BMP: 07/2022 Lipid Panel: [...] consulting health care provider Assessment & Plan (09/19/2024 2:50 PM EST): Above goal consistently, likely since discontinue of hydrochlorothiazide Pt reports tolerating olmesartan 40 mg Add nifedipine 30 mg Scheduled for rn bp check in 2 weeks Aware of signs symptoms requiring further evaluation Assessment & Plan (04/29/2023 11:09 PM EDT): [...] Encounters Date Type Department Care Team Description 11/24/2024 9:45 AM EDT Office Visit [address] [address] Isamar Bonner FNP Gout, unspecified cause, unspecified chronicity, unspecified site (Primary Dx) 11/24/2024 Travel 11/21/2024 Telephone [facility] [address] [place] [address] Isamar Bonner FNP 10/06/2024 Telephone [facility] [address] [place] [address] Misty Das RN 10/03/2024 11:00 AM EDT Clinical Support [facility] [address] [place] [address] Misty Das, RN Primary hypertension [I10] 10/03/2024 Travel 09/30/2024 Refill [facility] [address] [facility] [place] [address] [place] [facility] 09/30/2024 Refill [facility] [address] [facility] [place] [address] [place] Isamar [facility] 09/19/2024 1:00 PM EST Office Visit [facility] [address] [place] [address] Jennifer High, ELZA Primary hypertension (Primary Dx) 09/18/[address] [address] [place] Isamar [facility] may recall 09/03/2024 11:00 AM EST Clinical Support [address] [address] Benita Biswas, ROM Primary hypertension 09/03/2024 Travel 09/02/[address] [address] [place] Isamar [facility] Results 09/02/2024 Orders Only [facility] [address] [place] [phone] [facility] 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 (Primary Dx) from Last 3 Months Immunizations Name Administration [...] Date Recorded Patient Health Questionnaire-9 Score 0 11/24/2024 Patient Health Questionnaire-9 Score 0 11/24/2024 Last PHQ-9: Questionnaire Data Not on file 0 11/24/2024 Housing Stability Answer Date Recorded What is [...] Date Recorded Patient Health Questionnaire-2 Score 0 11/24/2024 Internet Access Answer Date Recorded Internet Access [...] Sign Reading Time Taken Comments Blood Pressure 134/74 11/24/2024 9:39 AM EDT Pulse 63 11/24/2024 9:39 AM EDT Temperature 36.2 ??C (97.2 ??F) 11/24/2024 9:39 AM ED T Respiratory Rate 20 11/24/2024 9:39 AM EDT Oxygen Saturation 100% 11/24/2024 9:39 AM EDT Inhaled Oxygen Concentration - - Weight 88.8 kg (195 lb 12.8 oz) 11/24/2024 9:39 AM EDT Height 167.6 cm (5' 6 ) 11/24/2024 9:39 AM EDT Body Mass Index 31.6 11/24/2024 9:39 AM EDT Plan of Treatment Health Maintenance Due Date Last Done Comments CT Colonography 1953 FIT DNA/Cologuard 1955 FIT 1955 FOBT 1955 Sigmoidoscopy 1955 Zoster Vaccines (2 of 3) 05/23/2016 03/28/2016 COVID-19 Vaccine ( season) 2024 10/13/2022, 08/17/2021, 12/06/2020, Additional history exists Alcohol/Substance Use Screening 11/24/2025 11/24/2024 Depression Screening 11/24/2025 11/24/2024, 11/25/19 Tobacco Screening 11/24/2025 11/24/2024 Colonoscopy 09/13/2026 Colorectal Cancer Screening 09/13/2026 RSV Patients and Patients Aged 60 years or older (1 - 1-dose 75+ series) 01/29/2028 Lipid Panel 08/25/2029 08/25/2024, 1001/2023, 06/27/2022, Additional history exists DTaP/Tdap/Td Vaccines (3 - [...] Procedure Name Priority Date/Time Associated Diagnosis Comments LIPID PANEL, STANDARD Routine 08/25/2024 8:28 AM EST Primary hypertension ZZZ HISTORICAL HEPATITIS C AB W/REFL TO HCV RNA, QN, PCR Routine 03/15/2020 9:50 AM EDT from Last 3 Months or Most Recently Relevant to Health Maintenance Results * (ABNORMAL) Lipid Panel, Standard (08/25/2024 8:28 AM EST) Triglycerides 130 <150 mg/dL [facility] Comment:Desirable Triglyceri de: less than 150 mg/dLBorderline High Triglyceride 150-199 mg/dLHigh Triglyceride: 200-499 mg/dLVery High Triglyceride: greater than or equal to 5OO mg/dL Cholesterol 154 <200 mg/dL [facility] Comment:Desirable Cholestero l: less than 200 mg/dLBorderline High Cholesterol: 200-239 mg/dLHigh Cholesterol: greater than 239 mg/dL LDL Cholesterol Calculated 93 <100 mg/dL [facility] Comment:Desirable LDL: less than 100 mg/dLNear Optimal/Above Optimal LDL: 110- 129 mg/dLBorderline High LDL: 130-159 mg/dLHigh LDL: 160-189 mg/dLVery High LDL: greater than or equal to 190 mg/dL HDL Cholesterol 35(L) >40 mg/dL [facility] Comment:Desirable HDL: great er than 40 mg/dL Note: This HDL assay may give artificially low results in patients with liver disease. Blood Venous blood specimen / Unknown 08/25/2024 8:28 AM EST 08/25/2024 11:01 AM EST [facility] BLOOD ORDERABLES Final Re sult [facility] [address] [place] [address] [phone] * HEPATITIS C AB W/REFL TO HCV RNA, QN, PCR (03/15/2020 9:50 AM EDT) HEPATITIS C ANTIBODY NON-REACT JENNIFER NON-REACT JENNIFER [facility] INDEX 0.08 <1.00 [facility] Comment: ?? HCV antibody was non-reactive. There is no laboratory ?? evidence of HCV infection. ?? In most cases, no further action is required. However, if recent HCV exposure is suspected, a test for HCV RNA (test code 57840) is suggested. ?? For additional information please refer to http://[employer]/faq/EWR50t8 (This link is being provided for informational/ educational purposes only.) ?? 03/15/2020 9:50 AM EDT us Mary Scanlon MD HISTORICAL/NON ORDERABLE LABS Final Result [facility] [address] from Last 3 Months or Most Recently Relevant to Health Maintenance Insurance [facility] Care Teams Earth Moving Machine Operator Relationship Specialty Start Date End Date Isamar Bonner FNP [address] [place] [phone] PCP - General Family Medicine 03/13/22
--- OUTSIDE RECORDS SUMMARY | 2024-11-24 10:27 | XMS_ITS | Encounter Summary ---
Author Organization [facility] Address [address] [place] [address] [address] [place] [address] Care Team Providers Care Active Directory Systems Administrator Name Role Phone Isamar Bonner Primary Care Provider [phone] Encounter Details Date Type Department Care Team (Late st Contact Info) Description 06/01/2023 Abstract [facility] [address] [place] [address] Melissa Pineda Social History Tobacco Use Types [...] as of this encounter Plan of Treatment Not on file documented as of this encounter Visit Diagnoses Not on filedocumented in this encounter Additional Health Concerns Assessment Noted Time PHQ-9 Depression Total Score: 0 01/16/20 23 1:07 PM EDT documented as of this encounter Care Teams Active Directory Systems Administrator Relationship Specialty Start Date End Date Isamar Bonner FNP [address] [place] [address] PCP - General Family Medicine 03/13/22 documented as of this encounter
--- OUTSIDE RECORDS SUMMARY | 2024-11-24 10:27 | XMS_ITS | Encounter Summary ---
Author Organization [employer] Address [address] [facility] 7t [place] [address] Care Team Providers Care Secretary Receptionist Name Role Phone Isamar Bonner [facility] Primary Care Provider Encounter Details Date Type Department Care Team ([facility] st Contact Info) Description 11/21/2024 Telephone [facility] [address] [place], [place] [phone] Isamar Bonner [facility] [address] [place], [place] [phone] Social History Tobacco Use Types Packs/Day Years [...] encounter Miscellaneous Notes * Telephone Encounter - Sho Farfan [place] - 11/21/2024 3:11 PM EDT Chart Prep Labs: done Images: done Referrals: not applicable Vaccines due: Covid and Zoster Screenings: not applicable Overdue care gaps: PHQ-9, TAMAR-7, and Tobacco sbirt documented in this encounter Plan of Treatment Not on file documented as of this encounter Visit Diagnoses Not on filedocumented in this encounter Additional Health Concerns Assessment Noted Time PHQ-9 Depression Total Score: 0 08/22/19 25 9:18 AM EST documented as of this encounter Care Teams Secretary Receptionist Relationship Specialty Start Date End Date Isamar Bonner FNP [address] [place] [phone] PCP - General Family Medicine 03/13/22 documented as of this encounter
--- OUTSIDE RECORDS SUMMARY | 2024-11-24 10:27 | XMS_ITS | Encounter Summary ---
Author Organization [email or web address] Address [address] [facility] 7t [place] [address] Care Team Providers Care Master [employer] Name Role Phone Isamar Bonner PLATE SENSITIZER Primary Care Provider [phone] Encounter Details Date Type Department Care Team (Latest Contact Info) Description 11/24/2024 Travel Social History Tobacco Use Types Packs/Day [...] Noted Time PHQ-9 Depression Total Score: 0 11/25/19 25 9:40 AM EDT documented as of this encounter Care Teams Master [employer] Y[employer] Relationship Specialty Start Date End Date Isamar Bonner FNP [address] [place] [phone] PCP - General Family Medicine 03/13/22 documented as of this encounter
--- OUTSIDE RECORDS SUMMARY | 2024-11-24 10:27 | XMS_ITS | Encounter Summary ---
Author Organization [employer] Address [address] [place] [address] 7 [place] [address] Care Team Providers Care Leather Sponger Name Role Phone [facility] Primary Care Provider [phone] Reason for Visit * Reason Comments Hypertension Encounter Details Date Type Department Care Team ([facility] Contact Info) Description 11/24/2024 9:45 AM EDT Office Visit [facility] [address] [place], [place] [phone] [facility] [address] [place] [address] Gout, unspecified cause, unspecified chronicity, unspecified site (Primary Dx) Social History Tobacco Use Types Packs/Day Years [...] Mass Index 31.6 11/24/2024 9:39 AM EDT documented in this encounter Progress Notes * [facility], MANAGER PROCESS EXCELLENCE - 11/24/2024 9:45 AM EDT SUBJECTIVE: Derik Smith is a 69 y.o. year old male with HTN, HLD, BPH and gout who presents for HTN followup . Denies recent illness, injury, or hospitalization. Last PCP visit 08/2024 Interval History Gout-started allopurinol; tolerating well. No flare ups since last PCP visit. HTN- hydrochlorothiazide discontinued at last visit d/t gout flares. Started olmesartan; toleratingwell. Only taking nifedipine when BP is elevated (140's/80's). Home readings typically well controlled. Social History Social History Narrative SOCIAL HX [...] dizziness, syncope, light-headedness and headaches. OBJECTIVE: Vitals: 11/24/24 0939 BP: 134/74 Pulse: 63 Resp: 20 Temp: 97.2 ??F (36.2 ??C) SpO2: 100% Physical Exam Constitutional: Appearance: Normal appearance. HENT: [...] Affect: Mood normal. Behavior: Behavior normal. ASSESSMENT/PLAN HTN - Reviewed home BP log, readings well controlled without nifedipine - Will hold nifedipine - Continue olmesartan Reviewed ED precautions to include chest pain, shortness of breath, severe headache, sudden vision changes or BP >=180/>=120 mmHg. Contact HC if three or more BP readings >140/90. Gout - Tolerating allopruinol well - Will check uric acid today, if elevated plan to increase allopurinol Follow Up: 3 month, routine PE Current Outpatient Medications on File Prior to Visit Medication Sig Dispense Refill acetaminophen (Tylenol 8 Hour) 650 MG ER tablet Take 2 tablets (1,300 mg) by mouth every 8 (eight) hours. 30 tablet 0 allopurinol (Zyloprim) 100 MG tablet Take 0.5 tablets (50 mg) by mouth Once per day. 45 tablet 3 aspirin 81 MG EC tablet Take 1 tablet by mouth in the morning. Colchicine 0.6 MG capsule Take 1 capsule (0.6 mg) by mouth Once per day. 90 capsule 0 Fluocinolone Acetonide Scalp ([place]-Smoothe/FS Scalp) 0.01 % oil Massage into damp scalp daily. Cover hair and leave on for at least 4 hours 118 mL 0 NIFEdipine XL (Procardia XL) 30 MG 24 hr tablet Take 1 tablet (30 mg) by mouth Once per day. Do notcrush, chew, or split. 30 tablet 11 olmesartan (BENIcar) 40 MG tablet Take 1 tablet (40 mg) by mouth Once per day. 30 tablet 11 simvastatin (Zocor) 40 MG tablet Take 1 tablet (40 mg) by mouth at bedtime. 90 tablet 0 triamcinolone (Kenalog) 0.1 % ointment Apply topically 2 times daily. For 2 weeks 15 g 0 No current facility-administered medications on file prior to visit. Wolof Translation: Provided by [facility] staff member ITZ Jaramillo documented in this encounter Plan of Treatment Scheduled Orders Name Type Priority Associated Diagnoses Orde r Schedule Uric acid Lab Routine Gout, unspecified cause, unspecified chronicity, unspecified site Expected: 11/24/2024 (Approximate), Expires: 11/24/2025 documented as of this encounter Visit Diagnoses Diagnosis Gout, unspecified cause, unspecified chronicity, unspecified site- Primary documented in this encounter Additional Health Concerns Assessment Noted Time PHQ-9 Depression Total Score: 0 11/25/19 25 9:40 AM EDT documented as of this encounter Care Teams Leather Sponger Relationship Specialty Start Date End Date Isamar Bonner FNP [address] [place] [phone] PCP - General Family Medicine 03/13/22 documented as of this encounter
--- OUTSIDE RECORDS SUMMARY | 2024-11-24 10:27 | XMS_ITS | Encounter Summary ---
Author Organization [employer] Address [address] [place] [address] [address] [place] [address] Care Team Providers Care Dump Truck Driver Name Role Phone Isamar Bonner Primary Care Provider Encounter Details Date Type Department Care Team (Latest Contact Info) Description 05/03/2022 Abstract [facility], Provider, DDS Social History Tobacco [...] on filedocumented in this encounter Care Teams Dump Truck Driver Relationship Specialty Start Date End Date Isamar Bonner FNP [address] [place] [phone] PCP - General Family Medicine 03/13/22 documented as of this encounter
[2024-11-24 12:20] LABS: Uric Acid 7.4 mg/dL (3.4-7.0)
== END 2024-11-24 10:02 | disposition home or self-care (01) ==
LOC: HO.HHCL 10:01
PROVIDERS: Visit Provider Registered Nurse
DX: M10.9 Gout, unspecified (principal)
CPT/HCPCS: 36415; 84550

== ENCOUNTER 2025-02-25 10:45 | Outpatient (REF) | payer MEDICARE, SELFPAY ==
--- OUTSIDE RECORDS SUMMARY | 2025-02-25 11:39 | XMS_ITS | Encounter Summary ---
Author Organization [facility] Address [address] [place] [address] 7 [place] [address] Care Team Providers Care Mystery Shopper Name Role Phone Isamar Bonner Primary Care Provider [phone] Encounter Details Date Type Department Care Team (Late st Contact Info) Description 06/01/2023 Abstract [facility] MED[facility] [address] [place] [address] Melissa Pineda Social History Tobacco Use Types [...] documented as of this encounter Care Teams Mystery Shopper Relationship Specialty Start Date End Date Isamar Bonner FNP [address] [place] [address] PCP - General Family Medicine 03/13/22 documented as of this encounter
[2025-02-25 12:12] LABS: Uric Acid 7.7 mg/dL (3.4-7.0)
[2025-02-25 12:22] LABS: Prostate Specific Antigen 1.74 ng/mL (<0.05-4.0)
== END 2025-02-25 10:46 | disposition home or self-care (01) ==
LOC: HO.HHCL 10:45
PROVIDERS: PCP Registered Nurse; Visit Provider Registered Nurse
DX: M1A.0720 Idiopathic chronic gout, left ankle and foot, without tophus (tophi) (principal); N40.0 Benign prostatic hyperplasia without lower urinary tract symptoms
CPT/HCPCS: 36415; 84153; 84550